=== PATIENT | male | born 1945 | race Caucasian/White ===

== ENCOUNTER 2017-12-07 07:00 | Emergency (ER) | payer MEDICARE ==
[~2017-12-07] VITALS: Ht 180.3 cm; Wt 75.0 kg
[~2017-12-07 07:00] MED LIST: ALEVE PM 220-251 TAB; AUGMENTIN875TAB PO; BACTRIM DS1 TAB OR; CITRACA1 PO; COQ10200 MG PO; CRESTOR40 MG PO; EFFIENT10 MG PO; LIPITOR40 MG PO; MULTI VIT PO; MULTI VITAMN PO; NO MEDS; PRAMIPEXOLE0.25 MG PO; TIZANIDINE2 MG PO; ULTRAM50 M1 PO
[2017-12-07] MEDS ORDERED: ASPIRINCHW 81MG PO (07:14)
[2017-12-07 07:40] LABS: HEMATOCRIT 44.1 % (39.0-50.0); HEMOGLOBIN 14.5 g/dl (14.0-18.0); IMMATURE GRANULOCYTES 0.3 % (0.0-1.0); MEAN CELL VOLUME 95.7 fL CALC (80.0-100.0); MEAN CORPUSCULAR HGB 31.5 pG CALC (26.0-32.0); MEAN CORPUSCULAR HGB CONC 32.9 g/L CALC (32.0-36.0); NEUT# 6.76 thou/uL (1.82-7.42); RED BLOOD COUNT 4.61 mill/uL (4.70-6.10); RED CELL DISTRI WIDTH 13.5 % (11.5-15.5)
[2017-12-07 08:01] LABS: ANION GAP 16 (6-22 (CALC)); BUN 17 mg/dL (8-23); BUN/CREATININE RATIO 17 (12-20 (CALC)); CARBON DIOXIDE 25 mmol/l (22-30); CHLORIDE 107 mmol/l (95-108); GFR > 60 ML/MIN (>=60 (CALC)); GFR FOR AFR.AMER. > 60 ML/MIN (>=60 (CALC)); POTASSIUM 4.3 mmol/l (3.5-5.1); SODIUM 143 mmol/l (137-146)
[2017-12-07 08:33] VITALS: BP 142/81
== END 2017-12-07 08:32 ==
LOC: ED 07:00
PROVIDERS: Family Medicine
DX: S68.121A Partial traumatic metacarpophalangeal amputation of left index finger, initial encounter (principal); W31.2XXA Contact with powered woodworking and forming machines, initial encounter; Y93.89 Activity, other specified; Y92.009 Unspecified place in unspecified non-institutional (private) residence as the place of occurrence of the external cause

== ENCOUNTER 2018-02-04 14:36 | Emergency (ER) | payer MEDICARE ==
[~2018-02-04] VITALS: Ht 180.3 cm; Wt 80.0 kg
[~2018-02-04 14:36] MED LIST changes: +ASPIRINCHW 81MG PO
[2018-02-04] MEDS ORDERED: TRAMADOL HCL50 MG PO (16:31)
[2018-02-04] MEDS ORDERED: VOLTAREN - GENE75 MG PO (16:31)
[2018-02-04 16:39] VITALS: BP 125/67
== END 2018-02-04 16:45 | disposition home or self-care (01) ==
LOC: ED 14:36
PROC: 3E0U3BZ Introduction of Anesthetic Agent into Joints, Percutaneous Approach (ICD-10-PCS; principal; 2018-02-04)
PROC: 3E0U33Z Introduction of Anti-inflammatory into Joints, Percutaneous Approach (ICD-10-PCS; 2018-02-04)
DX: S46.011A Strain of muscle(s) and tendon(s) of the rotator cuff of right shoulder, initial encounter (principal); I25.10 Atherosclerotic heart disease of native coronary artery without angina pectoris; F17.210 Nicotine dependence, cigarettes, uncomplicated; X50.0XXA Overexertion from strenuous movement or load, initial encounter; Y93.H2 Activity, gardening and landscaping; Z95.5 Presence of coronary angioplasty implant and graft

== ENCOUNTER 2020-03-31 15:19 | Emergency (ER) | payer MEDICARE ==
[~2020-03-31] VITALS: Ht 180.3 cm; Wt 68.0 kg
[~2020-03-31 15:19] MED LIST changes: +TRAMADOL HCL50 MG PO; +VOLTAREN - GENE75 MG PO
[2020-03-31] MEDS ORDERED: LIPITOR20 M1 PO (15:38)
[2020-03-31] MEDS ORDERED: PRAMIPEXOLE D0.25 MG PO (15:39)
[2020-03-31] MEDS ORDERED: KEFLEX500 M1 PO (18:28)
[2020-03-31 18:30] VITALS: BP 116/64
== END 2020-03-31 18:30 | disposition home or self-care (01) ==
LOC: ED 15:19
PROC: 0HQFXZZ Repair Right Hand Skin, External Approach (ICD-10-PCS; principal; 2020-03-31)
DX: S61.316A Laceration without foreign body of right little finger with damage to nail, initial encounter (principal); S61.214A Laceration without foreign body of right ring finger without damage to nail, initial encounter; I10 Essential (primary) hypertension; F17.210 Nicotine dependence, cigarettes, uncomplicated; W31.2XXA Contact with powered woodworking and forming machines, initial encounter; Y93.89 Activity, other specified; Y92.009 Unspecified place in unspecified non-institutional (private) residence as the place of occurrence of the external cause; Z95.5 Presence of coronary angioplasty implant and graft

== ENCOUNTER 2025-01-03 11:29 | Emergency (ER) | payer MEDICARE ==
[~2025-01-03] VITALS: Ht 180.3 cm; Wt 69.0 kg
[~2025-01-03 11:29] MED LIST changes: +KEFLEX500 M1 PO; +LIPITOR20 M1 PO; +PRAMIPEXOLE D0.25 MG PO
[2025-01-03 11:35] VITALS: BP 118/81
[2025-01-03] MEDS ORDERED: LIDOcaine HCl 1% (Local Anesth.) 20 ML VIAL STI STA (11:38)
[2025-01-03] MEDS ORDERED: Diph, Acellular Pertussis, Tet 0.5 ML/VIAL (Tdap) SDV IM ONE (11:40)
[2025-01-03] MEDS ORDERED: POVIDONE IODINE 0.5 OZ/BTL TOP ONE (11:40)
[2025-01-03] MEDS ORDERED: ceFAZolin 1 GM/VIAL SDV IM ONE (11:45)
[2025-01-03] MEDS ORDERED: STERILE WATER 10 ML/VIAL SDV IM ONE (11:45)
[2025-01-03] MEDS ORDERED: CEPHALEXIN500 M1 PO (11:48)
[2025-01-03 12:22] VITALS: BP 118/81
== END 2025-01-03 12:48 | disposition home or self-care (01) ==
LOC: ED 11:29
PROC: 0HQFXZZ Repair Right Hand Skin, External Approach (ICD-10-PCS; principal; 2025-01-03)
DX: S61.210A Laceration without foreign body of right index finger without damage to nail, initial encounter (principal); I25.10 Atherosclerotic heart disease of native coronary artery without angina pectoris; F17.200 Nicotine dependence, unspecified, uncomplicated; W31.2XXA Contact with powered woodworking and forming machines, initial encounter; Z95.5 Presence of coronary angioplasty implant and graft
CPT/HCPCS: 90715; J0690